=== PATIENT | female | born 1990 | race Caucasian/White ===

== ENCOUNTER 2016-05-02 08:29 | Emergency (ER) | payer OTHER ==
[2016-05-02 08:35] VITALS: RESP 18
[2016-05-02] MEDS ORDERED: ONDANSETRON 4 MG/2 ML VIAL IVP STA ×2 (08:42→10:24)
[2016-05-02] MEDS ORDERED: HYDROmorphone 1 MG/ML 1 ML SYRINGE IVP STA (08:42)
[2016-05-02] MEDS ORDERED: SODIUM CHLORIDE 0.9% 1,000 ML IV STA ×2 (08:42)
--- NOTE | 2016-05-02 08:44 | ED ---
General Adult HPI - General Chief complaint: Abdominal Pain Stated complaint: KIDNEY PAIN Time Seen by Provider: 05/02/16 08:37 Source: patient, RN notes reviewed Mode of arrival: wheelchair Limitations: no limitations - History of Present Illness Initial comments: Patient 25-year-old female with significant past medical history for [place], who presents emergency room today with chief complaint of increased left flank pain that started approximately 6 Hours ago. Patient does admit that it feels similar to kidney stones that she's had in the past. Describes it as sharp pain currently rates it a 9/10. States located in the left flank. Denies any signs of blood in the urine. Does admit to pressure. Admits to nausea vomiting. Denies any other complaints or symptoms. Patient denies any recent fever, chills, shortness of breath, chest pain, back pain, numbness or tingling , dysuria or hematuria, constipation or diarrhea, headaches or visual changes, or any other complaints. - Related Data Previous Rx's Medication Instructions Recorded Hydrocodone/Acetaminophen [[place] 1 each PO Q6HR PRN #20 tab 05/02/16 5-325] Ibuprofen [Motrin] 600 mg PO Q6HR PRN #40 day 05/02/16 Ondansetron Odt [Zofran ODT] 4 mg PO Q8HR PRN #15 tab 05/02/16 Sulfamethox-Tmp 800-160Mg [Bactrim 1 tab PO Q12HR #14 tab 05/02/16 DS 800-160 mg] Tamsulosin [Flomax] 0.4 mg PO DAILY #3 cap 05/02/16 Allergies Allergy/AdvReac Type Severity Reaction Status Date / Time Penicillins AdvReac Unknown Verified 05/02/16 08:36 Review of Systems ROS Statement: Those systems with pertinent positive or pertinent negative responses have been documented in the HPI. ROS Other: All systems not noted in ROS Statement are negative. Past Medical History Additional Past Medical History / Comment(s): "kidney stones" History of Any Multi-Drug Resistant Organisms: None Reported Additional Past Surgical History / Comment(s): "stents placed for kidney stones " Past Psychological History: No Psychological Hx Reported Smoking Status: Former smoker Past Alcohol Use History: None Reported Past Drug Use History: None Reported General Exam - General Exam Comments Initial Comments: General: The patient is awake and alert, mild distress. Eye: Pupils are equal, round and reactive to light, extra-ocular movements are intact. No nystagmus. There is normal conjunctiva bilaterally. No signs of icterus. Ears, nose, mouth and throat: There are moist mucous membranes and no oral lesions. Neck: The neck is supple, there is no tenderness or JVD. Cardiovascular: There is a regular rate and rhythm. No murmur, rub or gallop is appreciated. Respiratory: Lungs are clear to auscultation, respirations are non-labored, breath sounds are equal. No wheezes, stridor, rales, or rhonchi. Gastrointestinal: Soft, non-distended, non-tender abdomen without masses or organomegaly noted. There is no rebound or guarding present. No CVA tenderness. Bowel sounds are unremarkable. Musculoskeletal: Normal ROM, no tenderness. Strength 5/5. Sensation intact. Pulses equal bilaterally 2+. Neurological: A&O x 3. CN II-XII intact, There are no obvious motor or sensory deficits. Coordination appears grossly intact. Speech is normal. Skin: Skin is warm and dry and no rashes or lesions are noted. Psychiatric: Cooperative, appropriate mood & affect, normal judgment. Limitations: no limitations Course Vital Signs 05/02/16 08:31 Temperature 97.3 F L Pulse Rate 66 Respiratory 18 Rate Blood Pressure 113/66 O2 Sat by Pulse 100 Oximetry Medical Decision Making - Medical Decision Making Case discussed in detail with attending physician Dr. Betts. Patient reexamined at this time shows no signs of distress. Patient's labs have been reviewed. Shows 16,000 white count felt to be reactive from nausea vomiting. Patient's urinalysis does show greater than 130 red cells with 7 white. Patient does admit that she frequently gets UTIs and she has kidney stones. Will be started on antibiotics while culture is pending. Patient will be treated with pain medication and nausea medicine to go home with. Advised that these medications can cross over into breast milk if she is breast-feeding. Advised patient to hold breast milk for at least 48 hours while on these medicines. Advised follow -up the family doctor or return if symptoms increase or worsen. Patient states understanding and is in agreement. - Lab Data Result diagrams: 05/02/16 08:45 05/02/16 08:45 Lab Results 05/02/16 05/02/16 05/02/16 Range/Units 08:45 08:45 09:36 WBC 16.0 H (3.8-10.6) k/uL RBC 4.85 (3.80-5.40) m/uL Hgb 12.5 (11.4-16.0) gm/dL Hct 39.6 (34.0-46.0) % MCV 81.6 (80.0-100.0) fL MCH 25.9 (25.0-35.0) pg MCHC 31.7 (31.0-37.0) g/dL RDW 14.1 (11.5-15.5) % Plt Count 262 (150-450) k/uL Neutrophils % 86 % Lymphocytes % 11 % Monocytes % 2 % Eosinophils % 1 % Basophils % 0 % Neutrophils # 13.7 H (1.3-7.7) k/uL Lymphocytes # 1.7 (1.0-4.8) k/uL Monocytes # 0.3 (0-1.0) k/uL Eosinophils # 0.1 (0-0.7) k/uL Basophils # 0.0 (0-0.2) k/uL Sodium 146 H (137-145) mmol/L Potassium 4.0 (3.5-5.1) mmol/L Chloride 106 (98-107) mmol/L Carbon Dioxide 24 (22-30) mmol/L Anion Gap 16 mmol/L BUN 15 (7-17) mg/dL Creatinine 0.95 (0.52-1.04) mg/dL Est GFR (MDRD) Af Amer >60 (>60 ml/min/1.73 sqM) Est GFR (MDRD) Non-Af >60 (>60 ml/min/1.73 sqM) Glucose 129 H (74-99) mg/dL Calcium 10.2 (8.4-10.2) mg/dL Total Bilirubin 0.6 (0.2-1.3) mg/dL AST 21 (14-36) U/L ALT 45 (9-52) U/L Alkaline Phosphatase 85 (38-126) U/L Total Protein 7.6 (6.3-8.2) g/dL Albumin 4.7 (3.5-5.0) g/dL Amylase 50 (30-110) U/L Lipase 73 (23-300) U/L Urine Color Urine Appearance (Clear) Urine pH (5.0-8.0) Ur Specific [place] (1.001-1.035) Urine Protein (Negative) Urine Glucose (UA) (Negative) Urine Ketones (Negative) Urine Blood (Negative) Urine Nitrate (Negative) Urine Bilirubin (Negative) Urine Urobilinogen (<2.0) mg/dL Ur Leukocyte Esterase (Negative) Urine RBC (0-5) /hpf Urine WBC (0-5) /hpf Ur Squamous Epith Cells (0-4) /hpf Urine Mucus (None) /hpf Urine HCG, Qual Not Detected (Not Detectd) 05/02/16 Range/Units 09:36 WBC (3.8-10.6) k/uL RBC (3.80-5.40) m/uL Hgb (11.4-16.0) gm/dL Hct (34.0-46.0) % MCV (80.0-100.0) fL MCH (25.0-35.0) pg MCHC (31.0-37.0) g/dL RDW (11.5-15.5) % Plt Count (150-450) k/uL Neutrophils % % Lymphocytes % % Monocytes % % Eosinophils % % Basophils % % Neutrophils # (1.3-7.7) k/uL Lymphocytes # (1.0-4.8) k/uL Monocytes # (0-1.0) k/uL Eosinophils # (0-0.7) k/uL Basophils # (0-0.2) k/uL Sodium (137-145) mmol/L Potassium (3.5-5.1) mmol/L Chloride (98-107) mmol/L Carbon Dioxide (22-30) mmol/L Anion Gap mmol/L BUN (7-17) mg/dL Creatinine (0.52-1.04) mg/dL Est GFR (MDRD) Af Amer (>60 ml/min/1.73 sqM) Est GFR (MDRD) Non-Af (>60 ml/min/1.73 sqM) Glucose (74-99) mg/dL Calcium (8.4-10.2) mg/dL Total Bilirubin (0.2-1.3) mg/dL AST (14-36) U/L ALT (9-52) U/L Alkaline Phosphatase (38-126) U/L Total Protein (6.3-8.2) g/dL Albumin (3.5-5.0) g/dL Amylase (30-110) U/L Lipase (23-300) U/L Urine Color Light Yellow Urine Appearance Clear (Clear) Urine pH 5.5 (5.0-8.0) Ur Specific [place] 1.012 (1.001-1.035) Urine Protein Negative (Negative) Urine Glucose (UA) Negative (Negative) Urine Ketones Negative (Negative) Urine Blood Large H (Negative) Urine Nitrate Negative (Negative) Urine Bilirubin Negative (Negative) Urine Urobilinogen <2.0 (<2.0) mg/dL Ur Leukocyte Esterase Negative (Negative) Urine RBC 135 H (0-5) /hpf Urine WBC 7 H (0-5) /hpf Ur Squamous Epith Cells 1 (0-4) /hpf Urine Mucus Occasional H (None) /hpf Urine HCG, Qual (Not Detectd) Disposition Clinical Impression: Kidney stone on left side Disposition: HOME SELF-CARE Condition: Good Instructions: Kidney Stones (ED) Additional Instructions: Please use medications as prescribed and be aware that they will cross over into the breast milk. Please follow-up the family doctor over the next 2 days or return here to the emergency room symptoms increase or worsen or for any other concerns. Prescriptions: Hydrocodone/Acetaminophen [[place] 5-325] 1 each PO Q6HR PRN #20 tab PRN Reason: Pain Ibuprofen [Motrin] 600 mg PO Q6HR PRN #40 day PRN Reason: Pain Ondansetron Odt [Zofran ODT] 4 mg PO Q8HR PRN #15 tab PRN Reason: Nausea Sulfamethox-Tmp 800-160Mg [Bactrim DS 800-160 mg] 1 tab PO Q12HR #14 tab Tamsulosin [Flomax] 0.4 mg PO DAILY #3 cap Time of Disposition: 10:25
[2016-05-02 09:03] LABS: Basophils % (A) 0 %; CH 26.2; CHCM 32.1; Eosinophils # (A) 0.1 k/uL (0-0.7); Eosinophils % (A) 1 %; HCT 39.6 % (34.0-46.0); HDW 2.48; HGB 12.5 gm/dL (11.4-16.0); Luc # (Auto) 0.13; Luc % (Auto) 1; Lymphocytes # (A) 1.7 k/uL (1.0-4.8); Lymphocytes % (A) 11 %; MCH 25.9 pg (25.0-35.0); MCHC 31.7 g/dL (31.0-37.0); MCV 81.6 fL (80.0-100.0); Mean Platelet Volume 6.5; Monocytes # (A) 0.3 k/uL (0-1.0); Monocytes % (A) 2 %; Neutrophils # (A) 13.7 k/uL (1.3-7.7); Neutrophils % (A) 86 %; RBC 4.85 m/uL (3.80-5.40); RDW 14.1 % (11.5-15.5); WBC (Perox) 16.74
[2016-05-02 09:23] LABS: ALT 45 U/L (9-52); AST 21 U/L (14-36); Alkaline Phosphatase 85 U/L (38-126); Amylase 50 U/L (30-110); Anion Gap 16 mmol/L; Blood Urea Nitrogen 15 mg/dL (7-17); Calcium 10.2 mg/dL (8.4-10.2); Carbon Dioxide 24 mmol/L (22-30); Chloride 106 mmol/L (98-107); Glucose 129 mg/dL (74-99); Non-African American GFR(MDRD) >60 (>60 ml/min/1.73 sqM); Sodium 146 mmol/L (137-145); Total Bilirubin 0.6 mg/dL (0.2-1.3); Total Protein 7.6 g/dL (6.3-8.2)
[2016-05-02 09:58] LABS: Appearance,Urine Clear (Clear); Bilirubin,Urine Negative (Negative); Glucose,Urine (UA) Negative (Negative); Ketones,Urine Negative (Negative); Leukocyte Esterase,Urine Negative (Negative); Mucus,Urine Occasional /hpf; Nitrite,Urine Negative (Negative); PH, Urine 5.5 (5.0-8.0); Particle Count 3624; Protein,Urine Negative (Negative); RBC,Urine 135 /hpf (0-5); Specific Gravity,Urine 1.012 (1.001-1.035); Squamous Epithelial Cell,Urine 1 /hpf (0-4); UA Billing (MACRO vs. MICRO) MICRO; Urobilinogen,Urine <2.0 mg/dL (<2.0); WBC,Urine 7 /hpf (0-5)
[2016-05-02] MEDS ORDERED: KETOROLAC 30 MG/ML 1 ML VIAL IVP STA (10:24)
[2016-05-02 10:47] VITALS: BP 109/57; PULSE 72; TEMP 98.9
--- NOTE | 2016-05-02 10:47 | XR ---
EXAMINATION TYPE: XR KUB DATE OF EXAM: 05/02/2016 10:20 AM CLINICAL HISTORY: Left-sided pain. History of kidney stones. TECHNIQUE: 2 upright KUB images of the abdomen are obtained. COMPARISON: Abdominal x-ray July 31, 2013. CT abdomen pelvis a very 10/14/2010. FINDINGS: There is new 3 mm calculus mid pole level right kidney. There are 3-4 calculi in left kidne y measuring up to 5 mm in size now identified with new or calculi suspected upper pole level and inte rval clearance of calculi mid to lower pole level from 2014 study. Hepatosplenomegaly is redemonstrat ed. Scattered gas is seen in nondistended small and large bowel loops. Some paucity of bowel gas uppe r to mid abdomen is noted. The lung bases are clear. No pneumoperitoneum is present. Numerous densiti es left pelvis are suspicious for distal ureter calculi as are new from older studies. IMPRESSION: Bilateral nephrolithiasis redemonstrated with new calculi since 2013, note is made of 3-4 distal left ureter calculi felt to be present measuring up to 8 mm in long axis of the largest most distal stone .
== END 2016-05-02 10:48 | disposition home or self-care (01) ==
LOC: EC 08:29
DX: N20.2 Calculus of kidney with calculus of ureter (principal); Z88.0 Allergy status to penicillin; Z87.442 Personal history of urinary calculi; Z87.891 Personal history of nicotine dependence
CPT/HCPCS: 99284; 96374; 96375 ×2; 96376; 96361 ×2; 36415; 80053; 82150; 83690; 85025; 81001; 81025; 74000; J2405; J1885; J1170

== ENCOUNTER 2017-08-07 12:56 | Emergency (ER) | payer OTHER ==
[2017-08-07 13:04] VITALS: BP 125/78; PULSE 112; RESP 118
[2017-08-07] MEDS ORDERED: SODIUM CHLORIDE 0.9% 1,000 ML IV STA ×2 (13:11)
[2017-08-07] MEDS ORDERED: ONDANSETRON 4 MG/2 ML VIAL IVP STA (13:11)
[2017-08-07] MEDS ORDERED: ACETAMINOPHEN TAB 500 MG TAB PO STA (13:12)
--- NOTE | 2017-08-07 13:14 | ED ---
General Adult HPI - General Chief complaint: Abdominal Pain Stated complaint: Abd pain Time Seen by Provider: 08/07/17 13:07 Source: patient, RN notes reviewed Mode of arrival: ambulatory Limitations: no limitations - History of Present Illness Initial comments: 27-year-old female presenting with bilateral flank pain, dysuria and urinary frequency. Patient has history of kidney stones, approximately 3 days ago she developed right flank pain, this has progressed to bilateral flank pain. She states her urine has a strong odor. Denies any vaginal discharge or vaginal bleeding. Denies any abdominal pain. She has had some nausea, no vomiting. She is also had fever and chills. No significant cough or upper respiratory tract signs or symptoms. No rash. No lower extremity pain or swelling. - Related Data Home Medications Medication Instructions Recorded Confirmed Etonogestrel [Nexplanon] 1 implant SQ [id number] 08/07/17 08/07/17 Previous Rx's Medication Instructions Recorded Sulfamethox-Tmp 800-160Mg [Bactrim 1 tab PO Q12HR #28 tab 08/07/17 DS 800-160 mg] Allergies Allergy/AdvReac Type Severity Reaction Status Date / Time Penicillins AdvReac Rash/Hives Verified 08/07/17 13:09 Review of Systems ROS Statement: Those systems with pertinent positive or pertinent negative responses have been documented in the HPI. ROS Other: All systems not noted in ROS Statement are negative. Past Medical History Additional Past Medical History / Comment(s): "kidney stones" History of Any Multi-Drug Resistant Organisms: None Reported Additional Past Surgical History / Comment(s): "stents placed for kidney stones " Past Psychological History: No Psychological Hx Reported Smoking Status: Former smoker Past Alcohol Use History: None Reported Past Drug Use History: None Reported General Exam Limitations: no limitations General appearance: alert, in no apparent distress Head exam: Present: atraumatic, normocephalic Eye exam: Present: normal appearance, PERRL, EOMI ENT exam: Present: mucous membranes dry Neck exam: Present: normal inspection. Absent: tenderness, meningismus Respiratory exam: Present: normal lung sounds bilaterally. Absent: respiratory distress, wheezes Cardiovascular Exam: Present: normal rhythm, tachycardia GI/Abdominal exam: Present: soft. Absent: distended, tenderness, guarding Extremities exam: Present: normal inspection, normal capillary refill. Absent: calf tenderness Back exam: Present: CVA tenderness (R) (Tenderness worse on right), CVA tenderness (L) Neurological exam: Present: alert, oriented X3, CN II-XII intact. Absent: motor sensory deficit Psychiatric exam: Present: normal affect, normal mood Skin exam: Present: warm, dry. Absent: cyanosis, diaphoretic Course Vital Signs 08/07/17 08/07/17 13:02 14:03 Temperature 100.0 F H 98.7 F Pulse Rate 112 H Respiratory 118 H Rate Blood Pressure 125/78 O2 Sat by Pulse 99 Oximetry - Reevaluation(s) Reevaluation #1: 08/07/17 15:01 On reevaluation, patient is feeling much better. Medical Decision Making - Medical Decision Making 27-year-old female presenting with flank pain and dysuria. Patient is tachycardic and febrile. She is given IV hydration, laboratory studies are obtained, she does have an elevated white blood cell count at 10.3 which is predominantly neutrophils consistent with acute infection. Urine is positive for nitrate and 7 wbc's. Chest x-ray and abdominal x-ray are negative for any acute pathology. After IV hydration, Tylenol patient is feeling much better. She is given a dose of antibiotics awaiting culture results. She will be started on antibiotic for suspected cystitis and pyelonephritis. - Lab Data Result diagrams: 08/07/17 13:27 08/07/17 13:27 Lab Results 08/07/17 08/07/17 08/07/17 Range/Units 13:27 13:27 13:27 WBC 10.3 (3.8-10.6) k/uL RBC 5.36 (3.80-5.40) m/uL Hgb 14.8 (11.4-16.0) gm/dL Hct 44.8 (34.0-46.0) % MCV 83.6 (80.0-100.0) fL MCH 27.6 (25.0-35.0) pg MCHC 33.0 (31.0-37.0) g/dL RDW 13.6 (11.5-15.5) % Plt Count 214 (150-450) k/uL Neutrophils % 90 % Lymphocytes % 6 % Monocytes % 2 % Eosinophils % 2 % Basophils % 0 % Neutrophils # 9.3 H (1.3-7.7) k/uL Lymphocytes # 0.6 L (1.0-4.8) k/uL Monocytes # 0.2 (0-1.0) k/uL Eosinophils # 0.2 (0-0.7) k/uL Basophils # 0.0 (0-0.2) k/uL Sodium 142 (137-145) mmol/L Potassium 4.1 (3.5-5.1) mmol/L Chloride 105 (98-107) mmol/L Carbon Dioxide 21 L (22-30) mmol/L Anion Gap 16 mmol/L BUN 11 (7-17) mg/dL Creatinine 0.70 (0.52-1.04) mg/dL Est GFR (CKD-EPI)AfAm >90 (>60 ml/min/1.73 sqM) Est GFR (CKD-EPI)NonAf >90 (>60 ml/min/1.73 sqM) Glucose 92 (74-99) mg/dL Plasma Lactic Acid [place] (0.7-2.0) mmol/L Calcium 9.5 (8.4-10.2) mg/dL Total Bilirubin 1.2 (0.2-1.3) mg/dL AST 19 (14-36) U/L ALT 22 (9-52) U/L Alkaline Phosphatase 94 (38-126) U/L Total Protein 7.5 (6.3-8.2) g/dL Albumin 4.6 (3.5-5.0) g/dL Amylase 54 (30-110) U/L Lipase 68 (23-300) U/L Urine Color Urine Appearance (Clear) Urine pH (5.0-8.0) Ur Specific [place] (1.001-1.035) Urine Protein (Negative) Urine Glucose (UA) (Negative) Urine Ketones (Negative) Urine Blood (Negative) Urine Nitrite (Negative) Urine Bilirubin (Negative) Urine Urobilinogen (<2.0) mg/dL Ur Leukocyte Esterase (Negative) Urine RBC (0-5) /hpf Urine WBC (0-5) /hpf Ur Squamous Epith Cells (0-4) /hpf Urine Mucus (None) /hpf Urine HCG, Qual Not Detected (Not Detectd) Influenza Type A RNA (Not Detectd) Influenza Type B (PCR) (Not Detectd) 08/07/17 08/07/17 08/07/17 Range/Units 13:27 13:27 13:27 WBC (3.8-10.6) k/uL RBC (3.80-5.40) m/uL Hgb (11.4-16.0) gm/dL Hct (34.0-46.0) % MCV (80.0-100.0) fL MCH (25.0-35.0) pg MCHC (31.0-37.0) g/dL RDW (11.5-15.5) % Plt Count (150-450) k/uL Neutrophils % % Lymphocytes % % Monocytes % % Eosinophils % % Basophils % % Neutrophils # (1.3-7.7) k/uL Lymphocytes # (1.0-4.8) k/uL Monocytes # (0-1.0) k/uL Eosinophils # (0-0.7) k/uL Basophils # (0-0.2) k/uL Sodium (137-145) mmol/L Potassium (3.5-5.1) mmol/L Chloride (98-107) mmol/L Carbon Dioxide (22-30) mmol/L Anion Gap mmol/L BUN (7-17) mg/dL Creatinine (0.52-1.04) mg/dL Est GFR (CKD-EPI)AfAm (>60 ml/min/1.73 sqM) Est GFR (CKD-EPI)NonAf (>60 ml/min/1.73 sqM) Glucose (74-99) mg/dL Plasma Lactic Acid Cheng 0.8 (0.7-2.0) mmol/L Calcium (8.4-10.2) mg/dL Total Bilirubin (0.2-1.3) mg/dL AST (14-36) U/L ALT (9-52) U/L Alkaline Phosphatase (38-126) U/L Total Protein (6.3-8.2) g/dL Albumin (3.5-5.0) g/dL Amylase (30-110) U/L Lipase (23-300) U/L Urine Color Yellow Urine Appearance Cloudy H (Clear) Urine pH 5.0 (5.0-8.0) Ur Specific [place] 1.014 (1.001-1.035) Urine Protein Negative (Negative) Urine Glucose (UA) Negative (Negative) Urine Ketones 1+ H (Negative) Urine Blood Negative (Negative) Urine Nitrite Positive H (Negative) Urine Bilirubin Negative (Negative) Urine Urobilinogen <2.0 (<2.0) mg/dL Ur Leukocyte Esterase Trace H (Negative) Urine RBC 1 (0-5) /hpf Urine WBC 7 H (0-5) /hpf Ur Squamous Epith Cells 9 H (0-4) /hpf Urine Mucus Rare H (None) /hpf Urine HCG, Qual (Not Detectd) Influenza Type A RNA Not Detected (Not Detectd) Influenza Type B (PCR) Not Detected (Not Detectd) Disposition Clinical Impression: UTI (urinary tract infection), Pyelonephritis Disposition: HOME SELF-CARE Condition: Good Instructions: Kidney Infection (ED) Prescriptions: Sulfamethox-Tmp 800-160Mg [Bactrim DS 800-160 mg] 1 tab PO Q12HR #28 tab Referrals: Jessica Stover DO [Primary Care Provider] - 1-2 days Time of Disposition: 15:03
[2017-08-07 13:40] LABS: Basophils % (A) 0 %; Eosinophils # (A) 0.2 k/uL (0-0.7); Eosinophils % (A) 2 %; HCT 44.8 % (34.0-46.0); HGB 14.8 gm/dL (11.4-16.0); Lymphocytes # (A) 0.6 k/uL (1.0-4.8); Lymphocytes % (A) 6 %; MCH 27.6 pg (25.0-35.0); MCV 83.6 fL (80.0-100.0); Mean Platelet Volume 6.6; Monocytes # (A) 0.2 k/uL (0-1.0); Monocytes % (A) 2 %; Neutrophils # (A) 9.3 k/uL (1.3-7.7); Neutrophils % (A) 90 %; Platelet Count 214 k/uL (150-450); RBC 5.36 m/uL (3.80-5.40); RDW 13.6 % (11.5-15.5); WBC 10.3 k/uL (3.8-10.6)
[2017-08-07 13:46] LABS: Appearance,Urine Cloudy (Clear); Bilirubin,Urine Negative (Negative); Blood,Urine Negative (Negative); Color,Urine Yellow; Glucose,Urine (UA) Negative (Negative); Ketones,Urine 1+ (Negative); Leukocyte Esterase,Urine Trace (Negative); Mucus,Urine Rare /hpf; Nitrite,Urine Positive (Negative); Protein,Urine Negative (Negative); RBC,Urine 1 /hpf (0-5); Specific Gravity,Urine 1.014 (1.001-1.035); Squamous Epithelial Cell,Urine 9 /hpf (0-4); Urobilinogen,Urine <2.0 mg/dL (<2.0); WBC,Urine 7 /hpf (0-5)
[2017-08-07 13:54] LABS: ALT 22 U/L (9-52); AST 19 U/L (14-36); Albumin 4.6 g/dL (3.5-5.0); Alkaline Phosphatase 94 U/L (38-126); Amylase 54 U/L (30-110); Anion Gap 16 mmol/L; Blood Urea Nitrogen 11 mg/dL (7-17); Calcium 9.5 mg/dL (8.4-10.2); Carbon Dioxide 21 mmol/L (22-30); Chloride 105 mmol/L (98-107); Glucose 92 mg/dL (74-99); Lipase 68 U/L (23-300); Potassium 4.1 mmol/L (3.5-5.1); Sodium 142 mmol/L (137-145); Total Bilirubin 1.2 mg/dL (0.2-1.3); Total Protein 7.5 g/dL (6.3-8.2)
[2017-08-07 14:03] VITALS: TEMP 98.7
--- NOTE | 2017-08-07 14:26 | XR ---
EXAMINATION TYPE: XR KUB DATE OF EXAM: 08/07/2017 COMPARISON: 05/02/2016 INDICATION: Epigastric pain abdominal pain TECHNIQUE: Upright view FINDINGS: There is normal bowel gas within the colon. No free air is evident. Some nonspecific small bowel gas is present. No mass effect is evident. Psoas margins are normal. No organomegaly is present. Small amount pleural effusions at the right costophrenic angle. No suspicious calcifications are evid ent. IMPRESSION: 1. Unremarkable Abdomen
--- NOTE | 2017-08-07 14:26 | XR ---
EXAMINATION TYPE: XR chest 2V DATE OF EXAM: 08/07/2017 COMPARISON: NONE INDICATION: Epigastric pain TECHNIQUE: Frontal and lateral views of the chest are obtained. FINDINGS: The heart size is normal. The pulmonary vasculature is normal. The lungs are clear. IMPRESSION: 1. No acute pulmonary process.
[2017-08-07] MEDS ORDERED: cefTRIAXone IN SWFI 1,000 MG/10 ML SYRINGE IVP STA (14:45)
== END 2017-08-07 15:26 | disposition home or self-care (01) ==
LOC: EC 12:56
DX: N12 Tubulo-interstitial nephritis, not specified as acute or chronic (principal); N39.0 Urinary tract infection, site not specified; D72.829 Elevated white blood cell count, unspecified; Z87.891 Personal history of nicotine dependence; Z79.3 Long term (current) use of hormonal contraceptives; Z88.0 Allergy status to penicillin
CPT/HCPCS: 36415; 80053; 82150; 83605; 83690; 85025; 81001; 81025; 87040; 87086; 87077; 87186; 87502; 71046; 74018; 99284; 96374; 96375; 96361 ×2; J2405; J0696

== ENCOUNTER 2018-03-18 07:43 | Emergency (ER) | payer OTHER ==
[2018-03-18 07:46] VITALS: RESP 18
[2018-03-18] MEDS ORDERED: DIPH,PERTUS(ACELL)TETVAC-LF 0.5 ML VIAL IM ONE (08:06)
[2018-03-18] MEDS ORDERED: LIDOCAINE 1% INJ 10MG/ML (20 ML MDV) SQ ONE (08:07)
--- NOTE | 2018-03-18 08:10 | ED ---
General Adult HPI - General Chief complaint: Wound/Laceration Stated complaint: Hand laceration Time Seen by Provider: 03/18/18 08:03 Source: patient, RN notes reviewed Mode of arrival: ambulatory Limitations: no limitations - History of Present Illness Initial comments: 27-year-old female presents to the emergency department for a chief complaint of laceration to the right thumb 5 hours. Patient did not realize she had a deep laceration at that time. Patient denies any other pain in the hand. She denies any other injuries. She did not hit her head or lose consciousness. Patient is not up-to-date on immunizations. Patient has no other complaints at this time including shortness of breath, chest pain, abdominal pain, nausea or vomiting, headache, or visual changes. - Related Data Home Medications Medication Instructions Recorded Confirmed Etonogestrel [Nexplanon] 1 implant SQ [id number] 08/07/17 03/18/18 Previous Rx's Medication Instructions Recorded Cephalexin [Keflex] 500 mg PO Q6H 5 Days cap 03/18/18 Allergies Allergy/AdvReac Type Severity Reaction Status Date / Time Penicillins AdvReac Rash/Hives Verified 03/18/18 07:54 Review of Systems ROS Statement: Those systems with pertinent positive or pertinent negative responses have been documented in the HPI. ROS Other: All systems not noted in ROS Statement are negative. Past Medical History Additional Past Medical History / Comment(s): "kidney stones" History of Any Multi-Drug Resistant Organisms: None Reported Additional Past Surgical History / Comment(s): "stents placed for kidney stones " Past Psychological History: No Psychological Hx Reported Smoking Status: Former smoker Past Alcohol Use History: None Reported Past Drug Use History: None Reported General Exam Limitations: no limitations General appearance: alert, in no apparent distress Head exam: Present: atraumatic, normocephalic, normal inspection Eye exam: Present: normal appearance, PERRL, EOMI. Absent: scleral icterus, conjunctival injection, periorbital swelling ENT exam: Present: normal exam, mucous membranes moist Neck exam: Present: normal inspection, full ROM. Absent: tenderness, meningismus, lymphadenopathy Respiratory exam: Present: normal lung sounds bilaterally. Absent: respiratory distress, wheezes, rales, rhonchi, stridor Cardiovascular Exam: Present: regular rate, normal rhythm, normal heart sounds. Absent: systolic murmur, diastolic murmur, rubs, gallop, clicks Extremities exam: Present: full ROM (Full range of motion of the right thumb including MCP and IP joint.), tenderness (Tenderness to the right thumb over the laceration site), normal capillary refill (Capillary refill less than 2 seconds and radial pulse 2+ in the right upper extremity. Capillary refill less than 2 seconds in the right distal thumb.), other (There is a 2 cm laceration over the dorsal MCP joint of the right thumb. Minimal reduced sensation in the distal thumb.) Neurological exam: Present: alert, oriented X3, CN II-XII intact Psychiatric exam: Present: normal affect, normal mood Course Vital Signs 03/18/18 07:45 Temperature 98.4 F Pulse Rate 91 Respiratory 18 Rate Blood Pressure 113/77 O2 Sat by Pulse 100 Oximetry Procedures - Laceration Laceration #1 Consent Obtained: verbal consent Indication: laceration Site: other (Right thumb) Size (cm): 2 Description: linear Depth: simple, single layer Anesthetic Used: lidocaine 1% Anesthesia Technique: local infiltration Amount (mls): 3 Pre-repair: wound explored, irrigated extensively (Irrigated extensively with pressure saline), deep structures intact (No evidence of tendon involvement), foreign body removed (Did attempt removal of foreign bodies with pressure irrigation and exploration) Size of Sutures: 5-0 Number of Sutures: 5 Technique: simple, interrupted Patient Tolerated Procedure: well, no complications Medical Decision Making - Medical Decision Making 27-year-old female presents for chief complaint of laceration to the right thumb 5 hours ago. 2 cm lac across right 1st MCP joint, distal aspect. Full range of motion in the right thumb including the MCP and IP joint. Some reduced sensation in the distal right thumb. X-ray shows no acute displaced fracture. There is radiopaque foreign body visualized. I did attempt to remove foreign body with pressure irrigation and exploration. However patient will follow up with orthopedics for this and will be started on Keflex. Mother states patient has had Keflex before and is not ALLERGIC to although she does have penicillin ALLERGY. Wound was sutured with 5 simple interuppted sutures. Patient will return to the emergency Department if she has any worsening symptoms. She will monitor for signs infection which were discussed with her. She will return to sutures removed in 7-10 days. She will follow-up with orthopedics. Discussed with Dr Orozco. Disposition Clinical Impression: Laceration Disposition: HOME SELF-CARE Condition: Good Instructions: Care For Your Stitches (ED), Laceration (ED) Additional Instructions: Please take antibiotics as directed. Keep wound clean. Monitor for signs of infection such as spreading or streaking redness and return if these occur. Follow-up with orthopedics for possible foreign body. Return if you have any worsening symptoms. Prescriptions: Cephalexin [Keflex] 500 mg PO Q6H 5 Days cap Is patient prescribed a controlled substance at d/c from ED?: No Referrals: Jessica Stover DO [Primary Care Provider] - 1-2 days Rob Sawyer MD [STAFF PHYSICIAN] - 1-2 days Time of Disposition: 09:22
--- NOTE | 2018-03-18 08:39 | XR ---
EXAMINATION TYPE: XR finger RT DATE OF EXAM: 03/18/2018 CLINICAL HISTORY: pain TECHNIQUE: 3 views of the right first digit are submitted. COMPARISON: None FINDINGS: No displaced fracture is seen with certainty. Joint spaces are well-preserved. Correlate for soft tissue injury. Radiopaque foreign body visualized. IMPRESSION: No acute displaced fracture or dislocation.
[2018-03-18] MEDS ORDERED: CEPHALEXIN 500MG STARTER PACK 4 CAP BTL PO STA (09:28)
[2018-03-18 09:48] VITALS: BP 108/74; PULSE 72; TEMP 98
== END 2018-03-18 09:48 | disposition home or self-care (01) ==
LOC: EC 07:43
DX: S61.021A Laceration with foreign body of right thumb without damage to nail, initial encounter (principal); Z87.891 Personal history of nicotine dependence; Z23 Encounter for immunization; Z97.5 Presence of (intrauterine) contraceptive device; Z88.0 Allergy status to penicillin; W25.XXXA Contact with sharp glass, initial encounter
CPT/HCPCS: 12041; 90471; 90715; 99283